=== PATIENT | male | born 1975 | race Caucasian/White ===

== ENCOUNTER 2021-05-05 23:05 | Inpatient (IN) ==
[2021-05-05] MEDS ORDERED: METOPROLOL TARTRATE 1 MG/ML VIAL IV ONE (23:32)
[2021-05-05] MEDS ORDERED: ASPIRIN CHEW 324 MG ONE (23:32)
[2021-05-05] MEDS ORDERED: ASPIRIN CHEW 324 MG PO STA (23:32)
[2021-05-05] MEDS ORDERED: METOPROLOL TARTRATE 1 MG/ML VIAL IV STA (23:33)
[2021-05-05 23:42] LABS: Basophils # (auto) 0.03 K/uL (0-0.2); Basophils % (auto) 0.4 %; Eosinophils # (auto) 0.09 K/uL (0-0.5); Eosinophils % (auto) 1.1 %; Hematocrit (blood only) 47.1 % (42-52); Hemoglobin 17.2 g/dL (14.0-18.0); Immature Granulocytes # (auto) 0.05 K/uL (0.00-0.02); Immature Granulocytes % (auto) 0.6 %; Lymphocytes # (auto) 3.24 K/uL (1.2-3.4); Lymphocytes % (auto) 38.9 %; Mean Corpuscular Hemoglobin 33.1 pg (25-34); Mean Corpuscular Hgb Conc 36.5 g/dL (32-36); Mean Corpuscular Volume 90.8 fL (80-100); Mean Platelet Volume 10.1 fL (7.4-10.4); Monocytes # (auto) 0.69 K/uL (0.11-0.59); Monocytes % (auto) 8.3 %; Neutrophils # (auto) 4.23 K/uL (1.4-6.5); Neutrophils % (auto) 50.7 %; Platelet Count 191 K/uL (130-400); RDW Coefficient of Variation 11.8 % (11.5-14.5); RDW Standard Deviation 39.7 fL (36.4-46.3); Red Blood Count 5.19 M/uL (4.7-6.1); White Blood Count 8.33 K/uL (4.8-10.8)
[2021-05-05] MEDS ORDERED: MIDAZOLAM HCL 1 MG/ML 2ML VIAL ONE (23:43)
[2021-05-05] MEDS ORDERED: fentaNYL citrate 100 MCG/2 ML VIAL ONE (23:43)
[2021-05-05] MEDS ORDERED: HEPARIN (PORCINE) 1000 UNIT/ML 10 ML (CATH LAB USE ONLY) ONE (23:43)
[2021-05-05] MEDS ORDERED: niCARdipine HCL INJ 2.5 MG/ML 10 ML AMP ONE (23:43)
[2021-05-05] MEDS ORDERED: BIVALIRUDIN 250 MG VIAL (CATH LAB ONLY) ONE (23:44)
[2021-05-05] MEDS ORDERED: NITROGLYCERIN/D5W 100MCG/ML 20ML SYR ONE (23:44)
[2021-05-05 23:45] LABS: iSTAT Creatinine 1.2 mg/dl (0.6-1.3); iSTAT Hemoglobin 16.3 g/dl (14.0-18.0); iSTAT Ionized Calcium 1.02 mmol/l (1.12-1.32); iSTAT Potassium 3.8 mmol/L (3.3-5.0)
--- NOTE | 2021-05-05 23:47 | Emergency Department Note ---
Impression & Plan ST elevation AK (STEMI), Chest pain ED Provider Note NAME: FIOR ROJAS AGE: 45 SEX: M : 1975 ARRIVES VIA: Walk-In INFORMANT: Patient ED PROVIDER(S): Blair Salgado DO CHIEF COMPLAINT: Chest pain HPI: Patient is a 45-year-old male with past medical history of hyperlipidemia that presents the ER for chest pain. Pain is located over the middle of the c hest and started about an hour ago. Pain is described as a burning/heaviness. He has some left arm pain and shortness of breath with it. He was at its worse about 30 minutes ago. He denies any belly pain but admits to one episode of vomiting. No dysuria urgency or frequency. He denies any exertional symptoms but notes that he normally does not exert himself too much. Pain is currently a 2 out of 10. No other radiation. ROS: See above HPI for pertinent positives & negatives. A total of 10 systems reviewed and were otherwise negative. PAST MEDICAL HISTORY:See Below PAST SURGICAL HISTORY:See Below FAMILY HISTORY:See Below SOCIAL HISTORY:See Below HOME MEDICATIONS:See Below ALLERGIES:See Below VITALS:See Below PHYSICAL EXAMINATION: GENERAL: Sitting up in bed, alert, ill-appearing, mild distress EYE EXAM: normal conjunctiva. OROPHARYNX: no exudate, no erythema, lips, buccal mucosa, and tongue normal and mucous membranes are moist NECK: supple, no nuchal rigidity, no adenopathy, non-tender LUNGS: Clear to auscultation. Normal chest wall mechanics HEART: no murmurs, S1 normal and S2 normal ABDOMEN: abdomen soft, non-tender, normo-active bowel sounds, no masses, no rebound or guarding. UPPER EXTREMITIES: upper extremities are grossly normal. LOWER EXTREMITIES: No pitting edema. Calves are equal bilateral NEURO EXAM: Normal sensorium, cranial nerves II-XII grossly intact, normal speech, no gross weakness of arms, no gross weakness of legs. MEDICAL DECISION MAKING: Patient is a 45-year-old male with a past medical history of hyperlipidemia pr esents to the ER for midsternal chest pain which started about an hour ago. Has had its worse about half hour ago and has improved. Spelt 2 out of 10 now. He had some shortness of breath and left arm pain with it. EKG showed an inferior STEMI. Chest x-ray portable AP upright 1 view was unremarkable. He was given 2 doses of 2.5 Lopressor for an elevated heart rate and given aspirin. Discussed with Dr. PERAZA who evaluated the patient at bedside and he was taken emergently to the [facility]. After 2 doses of Lopressor his heart rate trended down to the 80s from the low 100-110. Blood pressure still remains slightly elevated in the 140s. Will hold on nitro with the inferior distribution of the AK. Triage Nursing notes reviewed. Limited review of prior medical records performed Vital Signs: reviewed and remarkable for no significant abnormalities Differential diagnosis: Differential diagnoses includes but is not limited to acute coronary syndrome, myocardial infarction, pericarditis, pulmonary embolus, aortic dissection, pneumonia, pneumothorax, musculoskeletal, shingles, esophageal. ER treatment provided: See below Diagnostics interpreted by me: ECG: EKG shows sinus rhythm rate of [address] segment elevations in the inferior leads With depression in V1 QTC 440 Cardiac Monitoring: An order was placed for continuous cardiac monitoring. The monitor shows a rate of 110 with sinus rhythm. Laboratory studies: As stated above and show below. Imaging studies: Portable AP upright 1 view of the chest per my read shows no focal infiltrate or pneumothorax Consultation(s): Discussed with interventional cardiology who presented to bedside Procedures: none Critical Care: I have personally spent 33 minutes of critical care time in the direct management of this patient. This includes bedside care, interpretation of diagnostic studies, and testing, discussion with consultants, patient, and family members, and other required patient management activities. This 33 minutes is in excess of all separately billable procedures. Past Med/Surg History Social History Smoking Status: Never smoker Feels Safe at Home: Yes Allergies Allergies Allergy/AdvReac Type Severity Reaction Status Date / Time No Known Allergies Allergy Verified 05/05/21 23:28 Home Meds Home Medications Medication Instructions Recorded Confirmed acetaminophen [Tylenol Extra 1,000 mg PO DIRECTED PRN 05/05/21 05/05/21 Strength] Results & Data (ED) Vital Signs Vital Signs - 24 hr 05/05/21 23:13 05/05/21 23:15 05/05/21 23:28 Temperature 36.7 C Temperature Source Temporal Artery Scan Pulse Rate 82 91 H Pulse Rate from SpO2 Sensor Respiratory Rate 14 23 Respiratory Effort / Characteristics Non-Labored Respiratory Depth Normal Blood Pressure 133/100 153/103 H Blood Pressure Mean 111 119 Pulse Oximetry 95 97 Oxygen Delivery Method Room Air Room Air Room Air Sepsis Recent Fever Within 48 Hours No Sepsis New/Unexplained Change in Mental Status No Sepsis Action Taken by Nursing No Action Required 05/05/21 23:40 05/05/21 23:44 05/05/21 23:45 Temperature Temperature Source Pulse Rate 106 H 86 83 Pulse Rate from SpO2 Sensor 108 H 87 Respiratory Rate 23 15 Respiratory Effort / Characteristics Respiratory Depth Blood Pressure 159/132 H 150/104 H 150/104 H Blood Pressure Mean 141 119 Pulse Oximetry 96 97 Oxygen Delivery Method Room Air Room Air Sepsis Recent Fever Within 48 Hours Sepsis New/Unexplained Change in Mental Status Sepsis Action Taken by Nursing 05/05/21 23:49 05/05/21 23:50 Temperature Temperature Source Pulse Rate 83 81 Pulse Rate from SpO2 Sensor 84 82 Respiratory Rate 17 22 Respiratory Effort / Characteristics Respiratory Depth Blood Pressure 138/104 H 143/102 H Blood Pressure Mean 115 115 Pulse Oximetry 94 94 Oxygen Delivery Method Room Air Room Air Sepsis Recent Fever Within 48 Hours Sepsis New/Unexplained Change in Mental Status Sepsis Action Taken by Nursing Laboratory Data Result diagrams: 05/05/21 23:34 05/05/21 23:34 Lab Results 05/05/21 05/05/21 05/05/21 Range/Units 23:34 23:34 23:34 WBC 8.33 (4.8-10.8) K/uL RBC 5.19 (4.7-6.1) M/uL Hgb 17.2 (14.0-18.0) g/dL POC Hgb 16.3 (14.0-18.0) g/dl Hct 47.1 (42-52) % POC Hct 48 (42-52) % MCV 90.8 (80-100) fL MCH 33.1 (25-34) pg MCHC 36.5 H (32-36) g/dL RDW Std Deviation 39.7 (36.4-46.3) fL RDW Coeff of Elzbieta 11.8 (11.5-14.5) % Plt Count 191 (130-400) K/uL MPV 10.1 (7.4-10.4) fL Immature Gran % (Auto) 0.6 % Neut % (Auto) 50.7 % Lymph % (Auto) 38.9 % O'Brien % (Auto) 8.3 % Eos % (Auto) 1.1 % Baso % (Auto) 0.4 % Neut # (Auto) 4.23 (1.4-6.5) K/uL Lymph # (Auto) 3.24 (1.2-3.4) K/uL O'Brien # (Auto) 0.69 H (0.11-0.59) K/uL Eos # (Auto) 0.09 (0-0.5) K/uL Baso # (Auto) 0.03 (0-0.2) K/uL Immature Gran # (Auto) 0.05 H (0.00-0.02) K/uL APTT 36.0 H (21.0-31.0) Seconds PTT Ratio 1.4 POC Sodium 138 (135-144) mmol/L POC Potassium 3.8 (3.3-5.0) mmol/L POC Chloride 99 L (101-112) mmol/L POC Total CO2 27 (24-31) mmol/L POC Anion Gap 17.0 (16-25) mmol/L POC BUN 13 (7-18) mg/dl POC Creatinine 1.2 (0.6-1.3) mg/dl POC Glucose (other) 125 H (70-99) mg/dl POC Ioniz Calcium Db 1.02 L (1.12-1.32) mmol/l COVID-19 Eval Order 05/05/21 Range/Units 23:47 WBC (4.8-10.8) K/uL RBC (4.7-6.1) M/uL Hgb (14.0-18.0) g/dL POC Hgb (14.0-18.0) g/dl Hct (42-52) % POC Hct (42-52) % MCV (80-100) fL MCH (25-34) pg MCHC (32-36) g/dL RDW Std Deviation (36.4-46.3) fL RDW Coeff of Elzbieta (11.5-14.5) % Plt Count (130-400) K/uL MPV (7.4-10.4) fL Immature Gran % (Auto) % Neut % (Auto) % Lymph % (Auto) % O'Brien % (Auto) % Eos % (Auto) % Baso % (Auto) % Neut # (Auto) (1.4-6.5) K/uL Lymph # (Auto) (1.2-3.4) K/uL O'Brien # (Auto) (0.11-0.59) K/uL Eos # (Auto) (0-0.5) K/uL Baso # (Auto) (0-0.2) K/uL Immature Gran # (Auto) (0.00-0.02) K/uL APTT (21.0-31.0) Seconds PTT Ratio POC Sodium (135-144) mmol/L POC Potassium (3.3-5.0) mmol/L POC Chloride (101-112) mmol/L POC Total CO2 (24-31) mmol/L POC Anion Gap (16-25) mmol/L POC BUN (7-18) mg/dl POC Creatinine (0.6-1.3) mg/dl POC Glucose (other) (70-99) mg/dl POC Ioniz Calcium Db (1.12-1.32) mmol/l COVID-19 Eval Order Covid19 at [facility] Administered Medications Discontinued Medications Aspirin (Aspirin Chew 324 Mg) Confirm Administered Dose 324 mg .ROUTE .STMessageMe-MED ONE Stop: 05/05/21 23:33 Last Admin: 05/05/21 23:45 Dose: 324 mg Documented by: [id number] Aspirin (Aspirin Chew 324 Mg) 324 mg PO NOW STA Stop: 05/05/21 23:33 Last Admin: 05/05/21 23:46 Dose: Not Given Documented by: [id number] Metoprolol Tartrate (Metoprolol Tartrate 1 Mg/Ml Vial) Confirm Administered Dose 5 mg IV .STK-MED ONE Stop: 05/05/21 23:33 Last Admin: 05/05/21 23:45 Dose: 5 mg Documented by: [id number] Metoprolol Tartrate (Metoprolol Tartrate 1 Mg/Ml Vial) 2.5 mg IV NOW STA Stop: 05/05/21 23:34 Last Admin: 05/05/21 23:47 Dose: Not Given Documented by: [id number] Discharge Plan Visit Data Chief Complaint: Chest Pain Stated Complaint: BURNING IN CHEST ED Provider: Blair Salgado Discharge Problem: ST elevation AK (STEMI), Chest pain Forms Stand Alone Forms: [facility] [place] [employer] Prescriptions Prescriptions: No Action acetaminophen [Tylenol Extra Strength] 500 mg Tablet 1,000 mg PO DIRECTED PRN (Reason: Pain) RF: 0 Referrals Referrals: Chon Donovan MD [Primary Care Provider] - Discharge Problem: ST elevation AK (STEMI) Qualifiers: Involved coronary artery: unspecified coronary artery Qualified Code(s): I21.3 - ST elevation (STEMI) myocardial infarction of unspecified site Chest pain Qualifiers: Chest pain type: unspecified Qualified Code(s): R07.9 - Chest pain, unspecified
[2021-05-05 23:51] LABS: Partial Thromboplastin Ratio 1.4
[2021-05-05] MEDS ORDERED: TICAGRELOR 90 MG TAB PO ONE (23:54)
[2021-05-05] MEDS ORDERED: HEPARIN 100 UNIT/ML 5ML FLUSH ONE (23:55)
[2021-05-05] MEDS ORDERED: HEPARIN SOD (PORCINE) 1000 UNIT/ML ONE (23:56)
[2021-05-06 00:05] LABS: Albumin Level 3.9 gm/dl (3.4-5.0); BUN Creatinine Ratio 12.3 (10-20); Creatinine Clr Calc Pharmacy 87.5 ml/min; Est GFR (African American) 88.3 ml/min; Est GFR (Non-African American) 76.2 ml/min; Potassium 3.5 mmol/L (3.5-5.1)
[2021-05-06 00:10] LABS: Albumin Globulin Ratio 1.1 (0.9-2); Bilirubin,Total 0.4 mg/dl (0.2-1); Globulin 3.4 gm/dl (2.5-4.0); Total Protein 7.3 gm/dl (6.4-8.2); Troponin I 0.03 ng/ml (0-0.045)
--- NOTE | 2021-05-06 00:15 | Pre Anesthesia Assessment ---
Date of Service May 06, 2021 Pre Sedation Assessment Vital Signs Temp Pulse Resp BP Pulse Ox 05/05/21 23:50 81 22 143/102 H 94 05/05/21 23:49 83 17 138/104 H 94 05/05/21 23:45 83 150/104 H 05/05/21 23:44 86 15 150/104 H 97 05/05/21 23:40 106 H 23 159/132 H 96 05/05/21 23:28 91 H 23 153/103 H 97 05/05/21 23:13 36.7 C 82 14 133/100 95 Cardiovascular RRR, no murmur, no edema Respiratory normal respiratory effort, lungs clear to auscultation Pre-Sedation Airway Assessment Smoking Status: Never smoker Mallampati Class: II ASA: ASA3 Notes The planned sedation has been discussed with the patient. Informed Consent was obtained. I have identified the patient, determined the appropriateness of sedation and have assessed the patient immediately prior to the procedure. All medicine(s) and interventions are by my order.
[2021-05-06] MEDS ORDERED: MIDAZOLAM HCL 1 MG/ML 2ML VIAL ONE (00:29)
--- NOTE | 2021-05-06 00:47 | Post Anesthesia Assessment ---
Date of Service May 06, 2021 Post Sedation Assessment Vital Signs Temp Pulse Resp BP Pulse Ox 05/05/21 23:50 81 22 143/102 H 94 05/05/21 23:49 83 17 138/104 H 94 05/05/21 23:45 83 150/104 H 05/05/21 23:44 86 15 150/104 H 97 05/05/21 23:40 106 H 23 159/132 H 96 05/05/21 23:28 91 H 23 153/103 H 97 05/05/21 23:13 36.7 C 82 14 133/100 95 Recovery Score Activity: Moves 4 extremities Respiration: Deep Breath/Cough Circulation: +/-20% PreAnes Value Consciousness: Fully Awake Oxygen Saturation: O2 needed for >90% Discharge Sedation Level of Care: Phase I Post Sedation Plan On clinical assessment, the patient appears to have tolerated the sedation without complications. Patient is recovering as anticipated. Patient will continue to be monitored by nursing and may be discharged when sedation discharge criteria are met per below protocol. Upon Completions of procedure up to 15 minutes continue every 5 minute vital signs and the P.A.R. score; then discharge to a Phase I or Fast Track to Phase II per the following guidelines: * Discharge Patient to appropriate Phase II area if PAR is 8 or greater or return to pre- procedure baseline. The post - procedure orders will be as directed. * If PAR score is less than 8 or not return to pre-procedure baseline then patient will follow Phase I monitoring till PAR is reached for Phase II. The Phase I may be done in procedure room or may call to secure a Phase I area. * If naloxone or flumazenil are used for reversal, hold in Phase I for continued monitoring from when last reversal dose was given for a minimum of 60 minutes or longer pending the nurse and/or physician discretion of patient condition before discharge to Phase II. Please call the Sedation Physician to re-evaluate and complete post-note for discharge to Phase II area. Do NOT discharge from procedure sedation or Phase 1 until post- sedation evaluation note is complete by procedure /sedation MD Sedation Discharge Instructions to be given to the patient at discharge to home.
--- NOTE | 2021-05-06 00:52 | Cardiac Catheterization ---
ACC Data: [employer] Cardiac Status Clinical evaluation leading to the procedure CAD Presenation: STEMI Cardiogenic Shock within 24 Hours: No Cardiac Arrest within 24 Hours: No Coronary Anatomy Left Main (% Stenosis): Normal LAD (% Stenosis): Mid (80) Circumflex (% Stenosis): Proximal (30) OM1 (% Stenosis): Proximal (70) OM2 (% Stenosis): Proximal (100) RCA (% Stenosis): Mid (70) Diagnostic Physicians Name: Casimiro Coronado MD Closure Device Recommendations: Medical Therapy and/or Counseling and PCI without planned CABG Cardiac Cath Procedure Full Procedure Date May 06, 2021 Pre-Procedure Diagnosis Pre-Procedure Diagnosis: STEMI AUC Score AUC Score: 9 Post-Procedure Diagnosis Post-Procedure Diagnosis: Severe CAD Procedure(s) Performed Procedure(s) Performed: Coronary Angiography and Drug Eluting Stent Director Channel Casimiro Coronado MD Estimated Blood Loss Estimated Blood Loss: None Summary of Findings 45-year-old gentleman, prior history of hyperlipidemia who presented to emergency room with sudden onset of substernal chest discomfort. EKG in the emergency room showed evidence of subtle ST segment elevations in inferior leads and minimal elevation in lateral leads. After extensive discussions, patient was taken over to cardiac catheterization lab. He had some hesitation earlier due to concerns about history of metal allergy in his mother however he does not himself has any significant known allergies. Emergency cardiac catheterization revealed presence of a 70% focal mid LAD lesion, also 60 to 70% OM1 lesion and 70% mid right coronary artery lesion. Culprit lesion was identified to be in second obtuse marginal artery with 100% occlusion and HAWK 0 flow. PCI was performed to second obtuse marginal artery with placement of 2.75 mm x 28 mm Xience drug-eluting stent, this was postdilated with 2.75 mm noncompliant balloon at nominal pressures. 0% residual with normal HAWK-3 flow, he did not have any immediate complications. He did have minimal slowing of his heart rhythm, sinus bradycardia which was promptly reversed with use of intravenous atropine. Hemodynamics Rest Ao:: 113/78 Final Ao: 95/70 LV: not done Recommendations Recommendations: Medical Therapy and/or Counseling and PCI without planned CABG Radiation Exposure (mGy) 1523 Contrast (mls) 110 I attest to the content of the Intraoperative Record and any orders documented therein. Any exceptions are noted below. PG Care Time/CCT Total # of Minutes Spent Total Time Spent with Patient: Total time spent is greater than 50% in coordination of care (as documented) at patient's floor/unit and/or counseling patient:
[2021-05-06] MEDS ORDERED: ICU PROTOCOL FOR HYPERGLYCEMIA PRN (03:07)
[2021-05-06 05:05] LABS: Basophils # (auto) 0.02 K/uL (0-0.2); Basophils % (auto) 0.2 %; Eosinophils # (auto) 0.01 K/uL (0-0.5); Eosinophils % (auto) 0.1 %; Hematocrit (blood only) 43.7 % (42-52); Hemoglobin 16.3 g/dL (14.0-18.0); Immature Granulocytes # (auto) 0.03 K/uL (0.00-0.02); Immature Granulocytes % (auto) 0.3 %; Lymphocytes % (auto) 16.2 %; Mean Corpuscular Hemoglobin 33.7 pg (25-34); Mean Corpuscular Hgb Conc 37.3 g/dL (32-36); Mean Corpuscular Volume 90.3 fL (80-100); Mean Platelet Volume 9.7 fL (7.4-10.4); Monocytes # (auto) 0.75 K/uL (0.11-0.59); Monocytes % (auto) 8.1 %; Neutrophils # (auto) 6.94 K/uL (1.4-6.5); Neutrophils % (auto) 75.1 %; Platelet Count 183 K/uL (130-400); RDW Coefficient of Variation 11.9 % (11.5-14.5); RDW Standard Deviation 39.3 fL (36.4-46.3); Red Blood Count 4.84 M/uL (4.7-6.1); White Blood Count 9.25 K/uL (4.8-10.8)
[2021-05-06 05:45] LABS: BUN Creatinine Ratio 11.5 (10-20); Calcium 8.6 mg/dl (8.5-10.1); Creatinine Clr Calc Pharmacy 103.9 ml/min; Est GFR (Non-African American) 94.9 ml/min; Magnesium 2.2 mg/dl (1.8-2.4); Potassium 3.8 mmol/L (3.5-5.1)
--- NOTE | 2021-05-06 05:57 | History and Physical Report ---
DATE OF ADMISSION: 05/06/2021 CHIEF COMPLAINT: Chest pain, ST elevated MD. HISTORY OF PRESENT ILLNESS: A 45-year-old male with past medical history significant for hyperlipidemia, obesity, currently not taking any medications, presents with chest pain. The patient around 10 p.m. was going to bed. He noticed chest discomfort of 2/10 severity but more of feeling tight in the chest when he was laying down, could not breathe and the pain started radiating to the left arm about 3/10 severity. At that time he decided to come to the ER. On the way he vomited. In the ER, he was found to have EKG showed ST elevation in inferolateral leads and heart rate was called. The patient was taken emergently to Cardiac Cath, cardiac cath done. Cardiac catheterization showed 70% focal mid LAD lesion, 60-70% OM1 lesion and 70% mid right coronary artery lesion. The culprit lesion was identified to be the second obtuse marginal artery with 100% occlusion. The patient is status post drug eluting stent to the second obtuse marginal artery. Currently patient is asymptomatic, resting comfortably in the ICU. Hemodynamically stable. The patient did not have any sweating , nausea, headache or dizziness during the episode. No cough, no fever, no chills, no earache, no runny nose, no sore throat. Denies any abdominal pain. Normal bowel and bladder movements. Otherwise before this episode he was ambulating fine without any symptoms. The patient also has history of very high cholesterol and family doctor prescribed him Lipitor but he never took it. ALLERGIES: No known drug allergies. PAST MEDICAL HISTORY: As mentioned above. PAST SURGICAL HISTORY: None. MEDICATIONS: None. FAMILY HISTORY: Mother has asthma, aortic valve replacement, severe peripheral vascular disease, hypertension, depression, allergies to metal. Father has hypertension. Sister has asthma, heart disorder. SOCIAL HISTORY: . No smoking, Alcohol rarely. No drug use. REVIEW OF SYMPTOMS: As per HPI. Rest of review of symptoms negative. PHYSICAL EXAMINATION: GENERAL: The patient is obese, not in acute distress. VITAL SIGNS: Temperature 36.6, pulse 97, respiratory rate 20, blood pressure 120/85, oxygen 95% on room air. HEENT: Head atraumatic. NECK: No JVD. No neck masses seen. CARDIOVASCULAR: S1, S2 heard. Regular rate and rhythm. No murmur, no gallop. RESPIRATORY: Normal AP diameter. No accessory muscle use. No wheeze, no crackles. ABDOMEN: Soft. Bowel sounds heard. Nontender, no distention. CENTRAL NERVOUS SYSTEM: Cranial nerves II-XII grossly intact. Nonfocal. EXTREMITIES: Right groin catheter site has no pitting or erythema seen. LABORATORY DATA: WBC 8.3, hemoglobin 17.2, hematocrit 47.1, platelets 191. APTT 36. Sodium 137, potassium 3.8, chloride 101, bicarb 26, BUN 14, creatinine 1.1, serum glucose 127, calcium 9, total bilirubin 0.4. AST 28, ALT 58, alkaline phosphatase 86. Troponin I 0.03. Lipase 176. SARS-CoV-2 PCR negative. chest x-ray. No acute findings. EKG: Normal sinus rhythm, sinus arrhythmia, rate of 72. ST elevation in the inferolateral leads. ASSESSMENT AND PLAN: This is a 45-year-old male presents with chest pain and ST elevated MD. 1. ST elevated MD, inferolateral leads status post emergent cardiac cath. Cardiac cath showed culprit lesion in the second obtuse marginal branch, 100% occlusion status post drug eluting stent. The patient also had lesions 70% focal mid LAD lesion, 60-70% OM1 lesion and 70% mid right coronary artery lesion. Currently the patient on aspirin, Brilinta, Lipitor and metoprolol. We will follow the serial enzymes and further management as per cardiology. Follow echo. Monitor in the ICU for now. 2. Hyperlipidemia. The patient has history of hyperlipidemia on outpatient labs in 05/2020. His LDL was 245, total cholesterol was 330 and HDL was 40. Family doctor started on Lipitor but he never took it. We will follow the lipid profile. Started him on Lipitor. needs followup. 3. DVT prophylaxis. SCDs. DISPOSITION: Monitor in ICU for now. Expect discharge home. Follow with cardiology and PCP. KENJI
--- NOTE | 2021-05-06 07:11 | XRay Report ---
XR chest 1V portable CLINICAL HISTORY: Chest Pain COMPARISON STUDY: No previous studies for comparison. FINDINGS: Lung volumes are normal. Lungs are clear. There is no pneumothorax or pleural effusion. Car diac size is normal. Mediastinal contours are normal. There is no evidence for pulmonary edema. IMPRESSION: No acute cardiopulmonary findings. ACT 112: Negative or not required by law. Electronically signed by: Maynor Bocanegra M.D. 05/06/2021 7:09 AM
[2021-05-06] MEDS: ASPIRIN 81 MG ECTAB PO SCH (08:07)
[2021-05-06] MEDS ORDERED: METOPROLOL TARTRATE 25 MG TAB PO SCH (09:00)
[2021-05-06] MEDS ORDERED: ATORVASTATIN 40 MG TAB PO SCH (09:00)
[2021-05-06] MEDS ORDERED: ATORVASTATIN 40 MG TAB PO ONE (09:30)
--- NOTE | 2021-05-06 09:38 | Cardiology Consultation ---
Date of Consultation May 06, 2021 Assessment & Plan (1) ST elevation [place] (STEMI): s/p emergent cardiac catheterization, PCI, IVANA to culprit thrombotic OM2 occlusion. Has residual LAD, RCA disease. Echo revealed normal wall motion, LVEF. Continue, ASA, Brilinta, Metoprolol (tirtrate dose), atorvastatin. Perhaps add ACEI, during admission, after cath course completed. Troponin I 124 ng/ ml . No angina at present. Inferolateral ST elevtion noted on presentation, repeat EKG this am. Stable for transfer to PCU. NPO after midnight for staged PCI of LAD on 05/07/21. (2) Dyslipidemia: Update lipid panel. Increase atorvastatin to 80 mg daily. Pt counseled on importance of statin therapy. (3) Family history of peripheral vascular disease: Pt with h/o PAD, carotid disease in mother whom I follow as an outpatient. Consider screening as outpatient. History of Present Illness Attending Physician: Mark Cruz MD History of Present Illness Mr Hodge Is a 45-year-old male with a past medical history of dyslipidemia. He had previously been on a statin agent, but he discontinued it due to concerns of risk of side effects. He however does not describe having had any specific intolerance. I actually follow his mother as an outpatient there was a history of multibed vascular disease including coronary heart disease, carotid disease, and peripheral vascular disease for which he underwent previous surgical revascularization. The patient was in his normal state of health until last evening when he went to bed at which time he had difficulty falling asleep due to onset of chest discomfort, difficulty breathing, and ultimately left arm pain and dyspepsia. He ultimately presented to the emergency department was found to have subtle inferior lateral ST segment prompting emergent cardiac catheterization elevation. Initial vital signs were obtained at 23:13, Balloon inflation to place a 12:32 AM. He underwent PCI of the culprit OM 2 stenosis with excellent angiographic result and subsequent resolution of his symptoms. Telemetry reveals sinus rhythm in the 90s. Past Medical History: dyslipidemia Surgical History: Cardiac catheterization as noted above this admission Family History: History of vascular disease in mother and other relatives. 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 Beliefs That Will Affect Care: None Current Living Situation: Spouse Other Information That Helps Us Care for You: No Feels Safe at Home: Yes Safety Concerns: Feels Safe At This Time Assistive Devices: None Review of Systems Review of Systems: All systems reviewed & are unremarkable except as noted in HPI & below Physical Exam Physical Exam: Temp Pulse Resp BP Pulse Ox 36.9 C 102 H 19 124/82 94 05/06/21 08:00 05/06/21 08:27 05/06/21 08:27 05/06/21 08:27 05/06/21 08:27 Constitutional: WD/WN, vitals as above Respiratory: normal respiratory effort, lungs clear to auscultation Cardiovascular: RRR, no murmur, no edema Gastrointestinal (Abdomen): normal bowel sounds, soft, nontender, no hepatosplenomegaly Neurologic: PERRL, EOMI, accommodation nl, no face palsy, no dysarthria Results & Data ([facility]) Vital Signs (Past 12 Hours) Vital Signs Temp Pulse Pulse Resp BP BP Pulse Ox 05/06/21 08:27 102 H 19 124/82 94 05/06/21 08:07 96 H 18 126/87 97 05/06/21 08:00 36.9 C 05/06/21 07:27 86 13 100/73 93 05/06/21 06:00 63 13 89 L 05/06/21 05:57 63 17 103/67 92 05/06/21 05:27 83 24 104/70 95 05/06/21 05:00 70 12 93 05/06/21 04:57 74 13 104/77 96 05/06/21 04:27 83 16 120/87 93 05/06/21 04:00 89 19 93 05/06/21 03:58 71 21 113/82 95 05/06/21 03:27 79 14 114/82 94 05/06/21 03:00 84 15 92 05/06/21 02:58 83 13 117/87 94 05/06/21 02:27 89 13 124/81 95 05/06/21 02:12 91 H 16 127/88 93 05/06/21 02:00 97 H 20 95 05/06/21 01:57 94 H 20 120/85 94 05/06/21 01:45 92 H 19 95 05/06/21 01:32 36.6 C 99 H 16 113/70 94 05/06/21 01:30 97 H 20 95 05/06/21 01:15 99 H 20 05/06/21 01:09 99 H 22 113/70 94 05/06/21 01:07 101 H 5 L 05/05/21 23:50 81 22 143/102 H 94 05/05/21 23:49 83 17 138/104 H 94 05/05/21 23:45 83 150/104 H 05/05/21 23:44 86 15 150/104 H 97 05/05/21 23:40 106 H 23 159/132 H 96 05/05/21 23:28 91 H 23 153/103 H 97 05/05/21 23:13 36.7 C 82 14 133/100 95 (1) ST elevation [place] (STEMI) Involved coronary artery: unspecified coronary artery Qualified Code(s): I21.3 - ST elevation (STEMI) myocardial infarction of unspecified site
[2021-05-06] MEDS ORDERED: METOPROLOL TARTRATE 25 MG TAB PO ONE (09:44)
[2021-05-06 10:48] LABS: Chol HDL Ratio 7; Cholesterol 279 mg/dl (0-200); HDL Cholesterol 42 mg/dl; LDL Cholesterol Calculated 198 mg/dl; Triglycerides 195 mg/dl (0-150); VLDL Cholesterol 39 mg/dl
--- NOTE | 2021-05-06 11:14 | Communication Note ---
Date of Service: May 06, 2021 Repeat EKG performed this morning sub- at 10:09 AM reveals resolution of the previously noted ST segment elevation, new Q waves however are noted in the inferior leads II, III, and aVF. Continue present treatment. Per patient's request, I called and updated his significant other, Mare, by phone.
[2021-05-06] MEDS: TICAGRELOR 90 MG TAB PO SCH ×2 (11:48→21:15)
--- NOTE | 2021-05-06 12:39 | Electrocardiogram Report ---
Test Reason : Blood Pressure : / mmHG Vent. Rate : 072 BPM Atrial Rate : 072 BPM P-R Int : 154 ms QRS Dur : 108 ms QT Int : 402 ms P-R-T Axes : 063 029 065 degrees QTc Int : 440 ms Normal sinus rhythm with sinus arrhythmia ST elevation consider inferolateral injury or acute infarct ACUTE [place] / STEMI Abnormal ECG No previous ECGs available Confirmed by Yayo Leung ([id number]) on 05/06/2021 12:39:28 PM Referred By: REFERRED SELF Confirmed By:Joaquin Leung
--- NOTE | 2021-05-06 12:40 | Electrocardiogram Report ---
Test Reason : Blood Pressure : / mmHG Vent. Rate : 101 BPM Atrial Rate : 101 BPM P-R Int : 150 ms QRS Dur : 098 ms QT Int : 374 ms P-R-T Axes : 053 -54 032 degrees QTc Int : 484 ms Sinus tachycardia Left anterior fascicular block Inferior infarct , age undetermined Abnormal ECG No previous ECGs available Confirmed by Yayo Leung ([id number]) on 05/06/2021 12:39:50 PM Referred By: REFERRED SELF Confirmed By:Joaquin Leung
--- NOTE | 2021-05-06 12:44 | Electrocardiogram Report ---
Test Reason : Blood Pressure : / mmHG Vent. Rate : 071 BPM Atrial Rate : 071 BPM P-R Int : 150 ms QRS Dur : 108 ms QT Int : 400 ms P-R-T Axes : 061 -53 038 degrees QTc Int : 434 ms Normal sinus rhythm Left axis deviation Inferior infarct (cited on or before 06-MAY-2021) Abnormal ECG When compared with ECG of 06-MAY-2021 01:17, (unconfirmed) No significant change was found Confirmed by Yayo Leung ([id number]) on 05/06/2021 12:44:26 PM Referred By: REFERRED SELF Confirmed By:Joaquin Leung
[2021-05-06] MEDS: METOPROLOL TARTRATE 25 MG TAB PO SCH (21:15)
[2021-05-06] MEDS: SODIUM CHLORIDE 0.9% 1000ML 1,000 ML IV SCH (21:19)
[2021-05-07] MEDS: ZOLPIDEM TARTRATE 5 MG TAB PO PRN ×2 (03:39→21:09)
[2021-05-07 06:26] LABS: Hematocrit (blood only) 44.5 % (42-52); Hemoglobin 15.9 g/dL (14.0-18.0); Mean Corpuscular Hemoglobin 32.1 pg (25-34); Mean Corpuscular Hgb Conc 35.7 g/dL (32-36); Mean Corpuscular Volume 89.7 fL (80-100); Mean Platelet Volume 10.1 fL (7.4-10.4); Platelet Count 151 K/uL (130-400); RDW Coefficient of Variation 12.1 % (11.5-14.5); RDW Standard Deviation 39.5 fL (36.4-46.3); Red Blood Count 4.96 M/uL (4.7-6.1)
[2021-05-07 06:58] LABS: Albumin Level 3.2 gm/dl (3.4-5.0); BUN Creatinine Ratio 11.9 (10-20); Calcium 8.4 mg/dl (8.5-10.1); Creatinine Clr Calc Pharmacy 105.3 ml/min; Est GFR (African American) 111.5 ml/min; Est GFR (Non-African American) 96.2 ml/min; Potassium 3.8 mmol/L (3.5-5.1)
[2021-05-07 07:00] LABS: Albumin Globulin Ratio 1.1 (0.9-2); Total Protein 6.2 gm/dl (6.4-8.2)
--- NOTE | 2021-05-07 07:10 | Hospitalist Progress Note ---
Date of Service May 07, 2021 Assessment & Plan (1) ST elevation [place] (STEMI): (2) Chest pain: (3) Family history of peripheral vascular disease: (4) Dyslipidemia: This is a 45-year-old male presents with chest pain and ST elevation [place]. 1. STEMI, inferolateral leads status post emergent cardiac cath. Cardiac cath showed culprit lesion in the second obtuse marginal branch, 100% occlusion status post drug eluting stent. The patient also had lesions 70% focal mid LAD lesion, 60-70% OM1 lesion and 70% mid right coronary artery lesion. Currently the patient on aspirin, Brilinta, Lipitor and metoprolol. We will follow the serial enzymes and further management as per cardiology. Follow echo. Monitor in PCU Returned to catheterization lab for staged PCI of non culprit mid LAD (1 IVANA) and mid RCA (2 overlapping Leif) today. Continue ASA, Brilinta, metoprolol. Change to metoprolol succinate 50 mg at discharge. Will reassess adding ACEI / ARB as outpatient, given relatively low BP (103/67), no h/o DM, CKD, or CHF (normal LVEF this admission). 2. Hyperlipidemia. The patient has history of hyperlipidemia on outpatient labs in 05/2020. His LDL was 245, total cholesterol was 330 and HDL was 40. Family doctor started on Lipitor but he never took it. Pt reports family members w/ adverse reaction after taking lipitor long-term, asking about starting Crestor instead. We will follow the lipid profile. Needs followup. 3. DVT prophylaxis. SCDs. DISPOSITION: PCU. Expect discharge home. Follow with cardiology and PCP. Admission and Anticipated Discharge Date Admission Date: May 06, 2021 Subjective Pt seen in follow up STEMI, chest pain, now s/p cardiac cath Sitting up in bed, feeling well Denies any chest pain, shortness of breath, palpitations, dizziness Pt's at the bedside and updated Review of Systems Review of Systems: All systems reviewed & are unremarkable except as noted in HPI & below Constitutional: no fever and no chills Respiratory: no cough and no dyspnea Cardiovascular: no chest pain and no palpitations Gastrointestinal: no abdominal pain, no nausea and no vomiting Physical Exam Physical Exam: GENERAL: WD, WN obese M, not in acute distress. HEENT: NC, Head atraumatic. NECK: No JVD. No neck masses seen. CARDIOVASCULAR: S1, S2 heard. Regular rate and rhythm. No murmur, no gallop. RESPIRATORY: Normal AP diameter. No accessory muscle use. No wheeze, no crackles. ABDOMEN: Soft. Bowel sounds heard. Nontender, no distention. NEURO: alett and oriented x3, speech fluent,no facial asymmetry, moves extremities EXTREMITIES: Radial band applied, +mild swelling Results & Data Results & Data ([facility]) Vital Signs (Past 12 Hours) Vital Signs Temp Pulse Pulse Pulse Resp BP Pulse Ox 05/07/21 03:21 36.8 C 81 17 111/73 94 05/06/21 23:10 36.6 C 74 18 108/75 94 05/06/21 22:25 71 Laboratory Results 05/07/21 05/07/21 05/06/21 Range/Units 06:08 06:08 17:11 WBC 8.30 (4.8-10.8) K/uL RBC 4.96 (4.7-6.1) M/uL Hgb 15.9 (14.0-18.0) g/dL Hct 44.5 (42-52) % MCV 89.7 (80-100) fL MCH 32.1 (25-34) pg MCHC 35.7 (32-36) g/dL RDW Std Deviation 39.5 (36.4-46.3) fL RDW Coeff of Elzbieta 12.1 (11.5-14.5) % Plt Count 151 (130-400) K/uL MPV 10.1 (7.4-10.4) fL Sodium 141 (136-145) mmol/L Potassium 3.8 (3.5-5.1) mmol/L Chloride 110 H (98-107) mmol/L Carbon Dioxide 23 (21-32) mmol/L Anion Gap 8.0 (3-11) BUN 11 (7-18) mg/dl Creatinine 0.94 (0.6-1.4) mg/dl Est Cr Clr Drug Dosing 105.3 ml/min Est GFR ( Amer) 111.5 ml/min Est GFR (Non-Af Amer) 96.2 ml/min BUN/Creatinine Ratio 11.9 (10-20) Glucose 101 H (70-99) mg/dl Calcium 8.4 L (8.5-10.1) mg/dl Total Bilirubin 1.0 D (0.2-1) mg/dl AST 135 H (15-37) U/L ALT 66 (12-78) U/L Alkaline Phosphatase 72 (45-117) U/L Troponin I 66.600 H* (0-0.045) ng/ml Total Protein 6.2 L (6.4-8.2) gm/dl Albumin 3.2 L (3.4-5.0) gm/dl Globulin 3.0 (2.5-4.0) gm/dl Albumin/Globulin Ratio 1.1 (0.9-2) Triglycerides (0-150) mg/dl Cholesterol (0-200) mg/dl LDL Cholesterol, Calc mg/dl VLDL Cholesterol, Calc mg/dl HDL Cholesterol mg/dl Cholesterol/HDL Ratio 05/06/21 05/06/21 Range/Units 10:57 09:55 WBC (4.8-10.8) K/uL RBC (4.7-6.1) M/uL Hgb (14.0-18.0) g/dL Hct (42-52) % MCV (80-100) fL MCH (25-34) pg MCHC (32-36) g/dL RDW Std Deviation (36.4-46.3) fL RDW Coeff of Elzbieta (11.5-14.5) % Plt Count (130-400) K/uL MPV (7.4-10.4) fL Sodium (136-145) mmol/L Potassium (3.5-5.1) mmol/L Chloride (98-107) mmol/L Carbon Dioxide (21-32) mmol/L Anion Gap (3-11) BUN (7-18) mg/dl Creatinine (0.6-1.4) mg/dl Est Cr Clr Drug Dosing ml/min Est GFR ( Amer) ml/min Est GFR (Non-Af Amer) ml/min BUN/Creatinine Ratio (10-20) Glucose (70-99) mg/dl Calcium (8.5-10.1) mg/dl Total Bilirubin (0.2-1) mg/dl AST (15-37) U/L ALT (12-78) U/L Alkaline Phosphatase (45-117) U/L Troponin I 105.000 H* (0-0.045) ng/ml Total Protein (6.4-8.2) gm/dl Albumin (3.4-5.0) gm/dl Globulin (2.5-4.0) gm/dl Albumin/Globulin Ratio (0.9-2) Triglycerides 195 H (0-150) mg/dl Cholesterol 279 H (0-200) mg/dl LDL Cholesterol, Calc 198 mg/dl VLDL Cholesterol, Calc 39 mg/dl HDL Cholesterol 42 mg/dl Cholesterol/HDL Ratio 7 Medications Administered Current Inpatient Medications Aspirin (Aspirin 81 Mg Ectab) 81 mg PO QAM [facility] Stop: 06/05/21 08:59 Last Admin: 05/06/21 08:07 Dose: 81 mg Documented by: Atorvastatin Calcium (Atorvastatin 40 Mg Tab) 80 mg PO QAM [facility] Stop: 06/06/21 08:59 Sodium Chloride (Nss 1000ml) 1,000 mls @ 75 mls/hr IV .[id number] [facility] Stop: 06/05/21 20:59 Last Admin: 05/06/21 21:19 Dose: 75 mls/hr Documented by: Metoprolol Tartrate (Metoprolol Tartrate 25 Mg Tab) 37.5 mg PO BID [facility] Stop: 06/05/21 20:59 Last Admin: 05/06/21 21:15 Dose: 37.5 mg Documented by: Miscellaneous (Icu Protocol For Hyperglycemia) 1 ea N/A PRN PRN; Protocol PRN Reason: Hyperglycemia Protocol Stop: 05/08/21 03:06 Ticagrelor (Ticagrelor 90 Mg Tab) 90 mg PO BID [facility] Stop: 06/05/21 10:59 Last Admin: 05/06/21 21:15 Dose: 90 mg Documented by: Zolpidem Tartrate (Zolpidem Tartrate 5 Mg Tab) 5 mg PO HS PRN PRN Reason: Sleep Stop: 06/06/21 03:14 Last Admin: 05/07/21 03:39 Dose: 5 mg Documented by: (1) ST elevation [place] (STEMI) Involved coronary artery: unspecified coronary artery Qualified Code(s): I21.3 - ST elevation (STEMI) myocardial infarction of unspecified site (2) Chest pain Chest pain type: unspecified Qualified Code(s): R07.9 - Chest pain, unspecified
[2021-05-07] MEDS: ASPIRIN 81 MG ECTAB PO SCH (08:13)
[2021-05-07] MEDS: TICAGRELOR 90 MG TAB PO SCH ×2 (08:13→21:07)
[2021-05-07] MEDS: METOPROLOL TARTRATE 25 MG TAB PO SCH ×2 (08:13→21:07)
[2021-05-07] MEDS ORDERED: ATORVASTATIN 40 MG TAB PO SCH (09:00)
--- NOTE | 2021-05-07 09:18 | Pre Anesthesia Assessment ---
Date of Service May 07, 2021 Pre Sedation Assessment Vital Signs Temp Pulse Pulse Pulse Resp BP BP 05/07/21 07:52 98.4 F 84 16 92/57 L 05/07/21 03:21 98.2 F 81 17 111/73 05/06/21 23:10 97.9 F 74 18 108/75 05/06/21 22:25 71 05/06/21 18:54 99.3 F 86 16 126/81 05/06/21 16:00 75 05/06/21 13:27 75 19 116/75 05/06/21 12:27 66 23 109/74 05/06/21 11:57 77 15 115/87 05/06/21 11:27 83 18 112/78 05/06/21 10:57 69 18 113/82 05/06/21 10:27 65 12 111/77 05/06/21 09:57 65 18 118/78 05/06/21 09:27 81 18 117/85 Pulse Ox 05/07/21 07:52 93 05/07/21 03:21 94 05/06/21 23:10 94 05/06/21 22:25 05/06/21 18:54 94 05/06/21 16:00 05/06/21 13:27 93 05/06/21 12:27 96 05/06/21 11:57 96 05/06/21 11:27 95 05/06/21 10:57 94 05/06/21 10:27 93 05/06/21 09:57 96 05/06/21 09:27 92 Cardiovascular RRR, no murmur, no edema Respiratory normal respiratory effort, lungs clear to auscultation Pre-Sedation Airway Assessment Smoking Status: Never smoker Hx Sleep Apnea: No Hx Difficult Intubation: No Short, Thick Neck: No Thyromental Distance: > or= 3.5 Finger Breadths Oral Cavity: + WNL Mallampati Class: II ASA: ASA3 Procedure Planning Contraindications for Sedation: none Current Medications Reviewed: Yes Notes The planned sedation has been discussed with the patient. Informed Consent was obtained. I have identified the patient, determined the appropriateness of sedation and have assessed the patient immediately prior to the procedure. All medicine(s) and interventions are by my order.
[2021-05-07] MEDS: SODIUM CHLORIDE 0.9% 1000ML 1,000 ML IV SCH (11:22)
[2021-05-07] MEDS ORDERED: niCARdipine HCL INJ 2.5 MG/ML 10 ML AMP ONE (11:55)
[2021-05-07] MEDS ORDERED: fentaNYL citrate 100 MCG/2 ML VIAL ONE (11:55)
[2021-05-07] MEDS ORDERED: HEPARIN (PORCINE) 1000 UNIT/ML 10 ML (CATH LAB USE ONLY) ONE ×2 (11:55→12:37)
[2021-05-07] MEDS ORDERED: MIDAZOLAM HCL 1 MG/ML 2ML VIAL ONE (11:55)
[2021-05-07] MEDS ORDERED: NITROGLYCERIN/D5W 100MCG/ML 20ML SYR ONE (11:56)
--- NOTE | 2021-05-07 12:11 | Electrocardiogram Report ---
Test Reason : Blood Pressure : / mmHG Vent. Rate : 071 BPM Atrial Rate : 071 BPM P-R Int : 146 ms QRS Dur : 100 ms QT Int : 402 ms P-R-T Axes : 070 004 054 degrees QTc Int : 436 ms Normal sinus rhythm Normal ECG When compared with ECG of 06-MAY-2021 10:09, Criteria for Inferior infarct are no longer Present Confirmed by Yayo Leung ([id number]) on 05/07/2021 12:11:00 PM Referred By: REFERRED SELF Confirmed By:Joaquin Leung
[2021-05-07] MEDS ORDERED: NOREPINEPHRINE BITARTRATE 1 MG/ML 4 ML VIAL (CATH LAB USE ONLY) ONE (12:16)
[2021-05-07] MEDS ORDERED: DOPamine 400MG / 250ML D5W (Cath Lab Use ONLY) ONE (12:18)
--- NOTE | 2021-05-07 13:46 | Post Anesthesia Assessment ---
Date of Service May 07, 2021 Post Sedation Assessment Vital Signs Temp Pulse Pulse Pulse Resp BP Pulse Ox 05/07/21 13:41 72 16 108/81 98 05/07/21 13:26 76 16 114/80 98 05/07/21 08:00 68 05/07/21 07:52 98.4 F 84 16 92/57 L 93 05/07/21 03:21 98.2 F 81 17 111/73 94 05/06/21 23:10 97.9 F 74 18 108/75 94 05/06/21 22:25 71 05/06/21 18:54 99.3 F 86 16 126/81 94 05/06/21 16:00 75 Recovery Score Activity: Moves 4 extremities Respiration: Deep Breath/Cough Circulation: +/-20% PreAnes Value Consciousness: Fully Awake Oxygen Saturation: > 92% On Room Air Post Anesthesia Score: 10 Discharge Sedation Level of Care: Fast Track Phase II Post Sedation Plan On clinical assessment, the patient appears to have tolerated the sedation without complications. Patient is recovering as anticipated. Patient will continue to be monitored by nursing and may be discharged when sedation discharge criteria are met per below protocol. Upon Completions of procedure up to 15 minutes continue every 5 minute vital signs and the P.A.R. score; then discharge to a Phase I or Fast Track to Phase II per the following guidelines: * Discharge Patient to appropriate Phase II area if PAR is 8 or greater or return to pre- procedure baseline. The post - procedure orders will be as directed. * If PAR score is less than 8 or not return to pre-procedure baseline then patient will follow Phase I monitoring till PAR is reached for Phase II. The Phase I may be done in procedure room or may call to secure a Phase I area. * If naloxone or flumazenil are used for reversal, hold in Phase I for continued monitoring from when last reversal dose was given for a minimum of 60 minutes or longer pending the nurse and/or physician discretion of patient condition before discharge to Phase II. Please call the Sedation Physician to re-evaluate and complete post-note for discharge to Phase II area. Do NOT discharge from procedure sedation or Phase 1 until post- sedation evaluation note is complete by procedure /sedation MD Sedation Discharge Instructions to be given to the patient at discharge to home.
--- NOTE | 2021-05-07 14:00 | Cardiac Catheterization ---
ACC Data: It Support Consultant Cardiac Status Clinical evaluation leading to the procedure CAD Presenation: STEMI Anginal Classification: CCS IV Heart Failure: No Cardiogenic Shock within 24 Hours: No Cardiac Arrest within 24 Hours: No Imaging Studies Past 6 Months: Yes Stress Studies Past 6 Months: No Diagnostic Physicians Name: Yayo Angelo MD Status: Elective Closure Device Percutaneous Entry Location: Radial Closure Device: Radial Band Recommendations: Medical Therapy and/or Counseling and PCI without planned CABG PCI Indication: Staged PCI Lesion Segment Name: proximal to mid LAD Culprit Artery: Yes Stenosis Prior to Rx (%): 90 Chronic Total Occlusion: No IVUS: Yes FFR: No Pre-Procedure HAWK Flow: 3 Previously Treated Lesion: No Lesion Complexity: High/C Lesion Length (mm): 30 Thrombus Present: No Bifurcation Lesion: Yes Guidewire Across Lesion: Stenosis Post-Procedure (%): 0 Post-Procedure HAWK Flow: 3 Devices(s) Deployed: Yes Yes Lesion #2 Segment Name: Mid RCA Culprit Artery: Yes Stenosis Prior to Rx (%): 70 Chronic Total Occlusion: No IVUS: No FFR: No Previously Treated Lesion: No Lesion Complexity: Non-High/Non-C Lesion Length (mm): 18 Thrombus Present: No Bifurcation Lesion: No Guidewire Across Lesion: Yes Stenosis Post-Procedure (%): 0 Post-Procedure HAWK Flow: 3 Devices(s) Deployed: Yes Intraprocedure Events Significant Disection: No Perforation: No Cardiac Cath Procedure Full Procedure Date May 07, 2021 Pre-Procedure Diagnosis Pre-Procedure Diagnosis: CAD AUC Score AUC Score: 7 Post-Procedure Diagnosis Post-Procedure Diagnosis: Successful PCI and Elevated Intracardiac Pressures Procedure(s) Performed Procedure(s) Performed: Coronary Angiography, Left Heart Cath and Drug Eluting Stent Apartment Rental Clerk Yayo Angelo MD Estimated Blood Loss Estimated Blood Loss: None Medication(s) Medication(s): Fentanyl, Heparin, Lidocaine 1%, Nicardipine and Nitroglycerin Summary of Findings Indication: Staged PCI of LAD, RCA after primary PCI to distal circumflex for inferolateral STEMI 05/05/2021 Access: 6 Fr right radial artery Catheters: EBU 3.5 guide, diagnostic JR4, JR4 guide Findings: LM -normal caliber, no significant disease LAD -severe diffuse proximal to mid disease up to 90% Circumflex -distal circumflex stent widely patent RCA -dominant, 40 to 50% proximal stenosis, 70% latemid RCA stenosis LVEDP -21 -- PCI -- Antithrombotic therapy: Heparin, ticagrelor Procedure: Left main cannulated with EBU 3.5 guide Hemotherapist 50 wire passed across lesion into distal LAD Prowater wire placed into second diagonal [place] IVUS catheter placed into latemid LAD. Pullback revealed severe diffuse disease extending back to ostium, mildly calcified. No significant left main disease Proximal to mid LAD lesion predilated with 2.5 compliant balloon Dilated lesion stented with 3.0 x 33 mm Xience drug-eluting stent Stent post-dilated with 3.5 noncompliant balloon IC vasodilators administered for spasm Repeat [place] IVUS revealed well-expanded stent, well apposed with no apparent edge complications. Post procedure HAWK 3 flow, stent well expanded with minimal residual stenosis, HAWK-3 flow in branch vessels and no apparent edge complications. RCA cannulated with JR4 guide Prowater wire placed into distal vessel Mid RCA stented with 2.75 x 18 mm Xience drug-eluting stent Stent postdilated with 3.0 NC IC vasodilators administered for spasm residual stenosis, haziness just distal to stent Second IVANA (3.0 x 12 mm Xience) overlapped with distal aspect of initial stent Stent postdilated with stent balloon Post procedure HAWK 3 flow, stent well expanded with minimal residual stenosis, and no apparent edge complications. Arterial Closure: TR band Summary: 1. Successful PCI of proximal to mid LAD with single drug-eluting stent (3.0 x 33 mm Xience; postdilated with 3.5 NC). 2. Successful PCI of mid RCA with 2 overlapping drug-eluting stents (2.75 x 18, 3.0 x 12 mm Xience). Recommendations: To PCU for continued monitoring Continue dual-antiplatelet therapy for at least 1 year Consult cardiac Rehab Hemodynamics Rest Ao:: 78/52/64 Final Ao: 106/68/86 LV: 102/21 Recommendations Recommendations: Medical Therapy and/or Counseling and PCI without planned CABG Specimens Specimens: None Radiation Exposure (mGy) 2923 Contrast (mls) 110 Fluids (cc crystalloids) Fluids (cc crystalloids): 440 Drains Drains: none Anesthesia moderate [id number] Procedural Complication(s) None Disposition PCU I attest to the content of the Intraoperative Record and any orders documented therein. Any exceptions are noted below. [facility] Card Cath Procedure Codes Cardiac Catheterization Procedure 1: Cardiovascular Cath Procedures: 47615 Left Heart Cath (+/-LV) Therapeutic Services & Ancillary Proc Procedure 1: Cardiovascular Tx and Anc Procedures: 88618 IV Ultrasound (Coronary or Graft) Moderate Sedation Procedure 1: Sedation/Anesthesia: 97139 Mod Sedation by the same physician;Init15 Min Child Age 5 & Up Procedure 2: Sedation/Anesthesia: 51413 Mod Sedation by the same physician; Ea [id number] Minutes Stenting Procedure 1: Cardiovascular Stent Procedures: 20214 Perc transcatheter placement of in tracoronary stent(s), with ang Procedure 2: Cardiovascular Stent Procedures: 54374 Ea addl branch of a major coronary artery PG Care Time/CCT Total # of Minutes Spent Total Time Spent with Patient: Total time spent is greater than 50% in coordination of care (as documented) at patient's floor/unit and/or counseling patient:
--- NOTE | 2021-05-07 16:56 | Cardiology Progress Note ---
Date of Service May 07, 2021 Assessment & Plan (1) ST elevation AR (STEMI): pt s/p emergent PCI , IVANA of culprit OM2 stenosis. Returned to catheterization lab for staged PCI of non culprit LAD and RCA today. Continue ASA, Brilinta, metoprolol. (2) Dyslipidemia: Pt declines to take atorvastatin due to family history of intolerance. Agreeable to rosuvastatin. Will start with 20 mg dose to ensure tolerance and titrate. (3) Family history of peripheral vascular disease: Mother with h/o AAA, LE PVC, carotid disease. Pt very concerned. Will proceed with screening duplex of Abd aorta. Continue radial artery access recovery protocol. Admission and Anticipated Discharge Date Admission Date: May 06, 2021 Subjective Pt seen in general cardiology follow up. Tolerated PCI well. Physical Exam Physical Exam: Temp Pulse Resp BP Pulse Ox 36.4 C L 83 18 100/70 94 05/07/21 15:19 05/07/21 15:45 05/07/21 15:45 05/07/21 15:45 05/07/21 15:45 Constitutional: WD/WN, vitals as above Respiratory: normal respiratory effort, lungs clear to auscultation Cardiovascular: RRR, no murmur, no edema mild hematoma of R radial access site, radial band in place Gastrointestinal (Abdomen): normal bowel sounds, soft, nontender, no hepatosplenomegaly Neurologic: PERRL, EOMI, accommodation nl, no face palsy, no dysarthria Results & Data ([facility]) Vital Signs (Past 12 Hours) Vital Signs Temp Pulse Pulse Pulse Resp BP BP 05/07/21 15:45 83 18 100/70 05/07/21 15:19 36.4 C L 87 18 95/68 L 05/07/21 15:01 36.6 C 85 20 97/65 L 05/07/21 14:45 36.7 C 88 19 109/74 05/07/21 14:30 36.8 C 92 H 18 101/82 05/07/21 14:13 36.4 C L 76 19 101/70 05/07/21 13:52 37 C 87 16 110/77 05/07/21 13:41 72 16 108/81 05/07/21 13:26 76 16 114/80 05/07/21 08:00 68 05/07/21 07:52 36.9 C 84 16 92/57 L Pulse Ox 05/07/21 15:45 94 05/07/21 15:19 92 05/07/21 15:01 94 05/07/21 14:45 94 05/07/21 14:30 94 05/07/21 14:13 05/07/21 13:52 95 05/07/21 13:41 98 05/07/21 13:26 98 05/07/21 08:00 05/07/21 07:52 93 (1) ST elevation AR (STEMI) Involved coronary artery: unspecified coronary artery Qualified Code(s): I21.3 - ST elevation (STEMI) myocardial infarction of unspecified site
[2021-05-07] MEDS: ROSUVASTATIN CALCIUM 20 MG TAB PO SCH (18:15)
[2021-05-08 06:53] LABS: Hematocrit (blood only) 45.2 % (42-52); Hemoglobin 16.1 g/dL (14.0-18.0); Mean Corpuscular Hemoglobin 32.8 pg (25-34); Mean Corpuscular Hgb Conc 35.6 g/dL (32-36); Mean Corpuscular Volume 92.1 fL (80-100); Mean Platelet Volume 10.1 fL (7.4-10.4); Platelet Count 173 K/uL (130-400); RDW Coefficient of Variation 12.1 % (11.5-14.5); RDW Standard Deviation 40.8 fL (36.4-46.3); Red Blood Count 4.91 M/uL (4.7-6.1); White Blood Count 8.63 K/uL (4.8-10.8)
[2021-05-08 07:12] LABS: Albumin Level 3.3 gm/dl (3.4-5.0); BUN Creatinine Ratio 13.1 (10-20); Calcium 8.8 mg/dl (8.5-10.1); Creatinine Clr Calc Pharmacy 92.6 ml/min; Est GFR (African American) 97.5 ml/min; Est GFR (Non-African American) 84.1 ml/min; Potassium 3.8 mmol/L (3.5-5.1)
[2021-05-08 07:14] LABS: Globulin 3.3 gm/dl (2.5-4.0); Total Protein 6.6 gm/dl (6.4-8.2)
[2021-05-08] MEDS: METOPROLOL TARTRATE 25 MG TAB PO SCH (08:16)
[2021-05-08] MEDS: ASPIRIN 81 MG ECTAB PO SCH (08:17)
[2021-05-08] MEDS: TICAGRELOR 90 MG TAB PO SCH (08:17)
--- NOTE | 2021-05-08 08:27 | Ultrasound Report ---
US aorta duplex CLINICAL HISTORY: family history of AAA COMPARISON STUDY: No previous studies for comparison. TECHNIQUE: Sonography of the abdominal aorta was performed. FINDINGS: There is no aneurysmal dilatation of the abdominal aorta. The proximal abdominal aorta dylan ures 1.4 cm in caliber. The mid abdominal aorta measures 1.4 cm. The distal abdominal aorta also dylan ures 1.4 cm. The caliber of the proximal bilateral common iliac arteries is normal. IMPRESSION: Normal caliber abdominal aorta. No aortic aneurysm. ACT 112: Negative or not required by law. Electronically signed by: Maynor Bocanegra M.D. 05/08/2021 8:26 AM
[2021-05-08] MEDS: ROSUVASTATIN CALCIUM 20 MG TAB PO SCH (09:17)
--- NOTE | 2021-05-08 09:44 | Electrocardiogram Report ---
Test Reason : Blood Pressure : / mmHG Vent. Rate : 091 BPM Atrial Rate : 091 BPM P-R Int : 152 ms QRS Dur : 100 ms QT Int : 362 ms P-R-T Axes : 074 -56 057 degrees QTc Int : 445 ms Normal sinus rhythm Left anterior fascicular block Abnormal ECG When compared with ECG of 07-MAY-2021 05:44, Left anterior fascicular block is now Present Confirmed by Yayo Leung ([id number]) on 05/08/2021 9:43:56 AM Referred By: REFERRED SELF Confirmed By:Joaquin Leung
--- NOTE | 2021-05-08 09:52 | Cardiology Progress Note ---
Date of Service May 08, 2021 Assessment & Plan (1) ST elevation DE (STEMI): EKG this morning 05/08/2021 reveals sinus rhythm at 91 bpm with left anterior fascicular block pattern, the previously noted anterolateral ST elevation noted on initial presentation to the emergency room has resolved. Subtle Q waves in the leads III and aVF cannot be excluded. pt s/p emergent PCI , IVANA of culprit OM2 stenosis. Returned to catheterization lab for staged PCI of non culprit mid LAD (1 IVANA) and mid RCA (2 overlapping Leif) today. Continue ASA, Brilinta, metoprolol. Change to metoprolol succinate 50 mg at discharge. Will reassess adding ACEI / ARB as outpatient, given relatively low BP (103/67), no h/o DM, CKD, or CHF (normal LVEF this admission). Stable for discharge. Follow up with Dr Chin in 2-3 weeks-appointment requested. I called [facility], out of pocket cost for Brilinta 90 mg BID =$30/month Cardiac rehab referral placed. (2) Dyslipidemia: LDL as outpatient in 05/2020 was 245 mg/dl. LDL this admission 198 mg/dl. Pt declines to take atorvastatin due to family history of intolerance. Agreeable to rosuvastatin. Will start with 20 mg dose to ensure tolerance and titrate. (3) Family history of peripheral vascular disease: Mother with h/o AAA, LE PVC, carotid disease. Duplex this admission, no AAA. Admission and Anticipated Discharge Date Admission Date: May 06, 2021 Subjective Patient seen in cardiology follow-up of his multivessel coronary heart disease having presented with inferolateral ST segment elevation myocardial infarction this admission. He notes feeling well. Denies any chest discomfort. His right wrist was a little bit swollen after the procedure yesterday, but this is improved, with minimal residual ecchymosis around his right radial artery access site. Telemetry reveals sinus rhythm at 70 bpm at rest, 99 bpm with walking in his room. Review of Systems Review of Systems: All systems reviewed & are unremarkable except as noted in HPI & below Physical Exam Physical Exam: Temp Pulse Resp BP Pulse Ox 37.4 C 73 18 103/67 92 05/08/21 07:55 05/08/21 08:00 05/08/21 07:55 05/08/21 07:55 05/08/21 07:55 Constitutional: WD/WN, vitals as above Respiratory: normal respiratory effort, lungs clear to auscultation Cardiovascular: RRR, no murmur, no edema Vessels: no JVD Right radial access site clean dry and intact, mild ecchymosis, no hematoma, no stigmata of peripheral embolic phenomenon. Gastrointestinal (Abdomen): normal bowel sounds, soft, nontender, no hepatosplenomegaly Neurologic: PERRL, EOMI, accommodation nl, no face palsy, no dysarthria Results & Data ([facility]) Vital Signs (Past 12 Hours) Vital Signs Temp Pulse Pulse Pulse Resp BP BP 05/08/21 08:00 73 05/08/21 07:55 37.4 C 92 H 18 103/67 05/08/21 03:45 36.8 C 95 H 19 107/69 05/07/21 23:56 37.5 C 82 18 108/75 05/07/21 22:20 82 Pulse Ox 05/08/21 08:00 05/08/21 07:55 92 05/08/21 03:45 94 05/07/21 23:56 92 05/07/21 22:20 Laboratory Results Cardiac Enzymes 05/08/21 Range/Units 06:41 AST 77 H (15-37) U/L CBC 05/08/21 Range/Units 06:41 WBC 8.63 (4.8-10.8) K/uL RBC 4.91 (4.7-6.1) M/uL Hgb 16.1 (14.0-18.0) g/dL Hct 45.2 (42-52) % Plt Count 173 (130-400) K/uL Comprehensive Metabolic Panel 05/08/21 Range/Units 06:41 Sodium 136 (136-145) mmol/L Potassium 3.8 (3.5-5.1) mmol/L Chloride 107 (98-107) mmol/L Carbon Dioxide 21 (21-32) mmol/L BUN 14 (7-18) mg/dl Creatinine 1.05 (0.6-1.4) mg/dl Glucose 100 H (70-99) mg/dl Calcium 8.8 (8.5-10.1) mg/dl AST 77 H (15-37) U/L ALT 55 (12-78) U/L Alkaline Phosphatase 75 (45-117) U/L Total Protein 6.6 (6.4-8.2) gm/dl Albumin 3.3 L (3.4-5.0) gm/dl Intake and Output 05/07/21 05/08/21 05/08/21 22:59 06:59 14:59 Intake Total 1954 740 / 1954 Output Total Balance 1953 739 / 1953 Intake: IV 0 1214 Sodium Chloride 0.9% 1000ML 1, 0 1214 000 ml @ 100 mls/hr IV .Q10H RITA Rx#:[id number] Oral 740 / 740 Output: Urine Other: # Unmeasured Voids 1 Weight 95.9 kg Weight Measurement Method Standing Scale (1) ST elevation DE (STEMI) Involved coronary artery: unspecified coronary artery Qualified Code(s): I21.3 - ST elevation (STEMI) myocardial infarction of unspecified site
--- NOTE | 2021-05-08 10:30 | Hospitalist Progress Note ---
Date of Service May 08, 2021 Assessment & Plan (1) Chest pain: STEMI S/P PCI: Successful PCI of proximal to mid LAD with single drug-eluting stent. Successful PCI of mid RCA with 2 overlapping drug-eluting stents. EKG shows: Sinus tachycardia, left anterior fascicular block, inferior infarct Elevated cardiac enzymes CXR:No acute cardiopulmonary findings. ECHO: Mild concentric LVH. No regional wall motion abnormality. Left ventricle systolic function is normal. EF 55 to 60%. Diastolic dysfunction, grade 2. Appreciate cardiology input Continue aspirin, Brilinta, statin, metoprolol Needs follow-up with cardiology upon discharge Dyslipidemia Patient declines to take atorvastatin given family history of intolerance Continue rosuvastatin 20 mg daily DVT Px: SCDs CODE STATUS Full code Admission and Anticipated Discharge Date Admission Date: May 06, 2021 Subjective Patient seen and examined at bedside Chest pain resolved Discussed with cardiology today Eager to get discharged Denies dyspnea, dizziness, nausea, abdominal pain Offers no other complaints Review of Systems Review of Systems: All systems reviewed & are unremarkable except as noted in HPI & below Physical Exam Physical Exam: Physical Exam: Vitals signs as noted above General Appearance:Moderately built and nourished, no apparent distress Head: normocephalic, Atraumatic Eyes: normal inspection, EOMI Neck: supple, Trachea midline Respiratory/Chest: Normal breath sounds, CTA, No accessory muscle use Cardiovascular: S1, S2, No murmur Abdomen/GI:Soft, Non tender, Bowel sounds present Extremities/Musculoskeletal:normal inspection, no edema Neurologic/Psych:AAOX3, grossly no focal neurological deficits Skin: normal color, warm Results & Data Results & Data ([facility]) Vital Signs (Past 12 Hours) Vital Signs Temp Pulse Pulse Pulse Resp BP BP 05/08/21 08:00 73 05/08/21 07:55 37.4 C 92 H 18 103/67 05/08/21 03:45 36.8 C 95 H 19 107/69 05/07/21 23:56 37.5 C 82 18 108/75 Pulse Ox 05/08/21 08:00 05/08/21 07:55 92 05/08/21 03:45 94 05/07/21 23:56 92 Laboratory Results Short CBC 05/08/21 Range/Units 06:41 WBC 8.63 (4.8-10.8) K/uL Hgb 16.1 (14.0-18.0) g/dL Hct 45.2 (42-52) % Plt Count 173 (130-400) K/uL BMP 05/08/21 06:41 Sodium 136 Potassium 3.8 Chloride 107 Carbon Dioxide 21 BUN 14 Creatinine 1.05 Glucose 100 H Calcium 8.8 Liver Function 05/08/21 Range/Units 06:41 Total Bilirubin 1.0 (0.2-1) mg/dl AST 77 H (15-37) U/L ALT 55 (12-78) U/L Alkaline Phosphatase 75 (45-117) U/L Albumin 3.3 L (3.4-5.0) gm/dl (1) Chest pain Chest pain type: unspecified Qualified Code(s): R07.9 - Chest pain, unspecified
--- NOTE | 2021-05-08 15:43 | Discharge Summary ---
Date of Service May 08, 2021 Admission HPI Per Admitting Provider CHIEF COMPLAINT: Chest pain, ST elevated MO. HISTORY OF PRESENT ILLNESS: A 45-year-old male with past medical history significant for hyperlipidemia, obesity, currently not taking any medications, presents with chest pain. The patient around 10 p.m. was going to bed. He noticed chest discomfort of 2/10 severity but more of feeling tight in the chest when he was laying down, could not breathe and the pain started radiating to the left arm about 3/10 severity. At that time he decided to come to the ER. On the way he vomited. In the ER, he was found to have EKG showed ST elevation in inferolateral leads and heart rate was called. The patient was taken emergently to Cardiac Cath, cardiac cath done. Cardiac catheterization showed 70% focal mid LAD lesion, 60-70% OM1 lesion and 70% mid right coronary artery lesion. The culprit lesion was identified to be the second obtuse marginal artery with 100% occlusion. The patient is status post drug eluting stent to the second obtuse marginal artery. Currently patient is asymptomatic, resting comfortably in the ICU. Hemodynamically stable. The patient did not have any sweating , nausea, headache or dizziness during the episode. No cough, no fever, no chills, no earache, no runny nose, no sore throat. Denies any abdominal pain. Normal bowel and bladder movements. Otherwise before this episode he was ambulating fine without any symptoms. The patient also has history of very high cholesterol and family doctor prescribed him Lipitor but he never took it. Admission Exam Per Admitting Provider PHYSICAL EXAMINATION: GENERAL: The patient is obese, not in acute distress. VITAL SIGNS: Temperature 36.6, pulse 97, respiratory rate 20, blood pressure 120/85, oxygen 95% on room air. HEENT: Head atraumatic. NECK: No JVD. No neck masses seen. CARDIOVASCULAR: S1, S2 heard. Regular rate and rhythm. No murmur, no gallop. RESPIRATORY: Normal AP diameter. No accessory muscle use. No wheeze, no crackles. ABDOMEN: Soft. Bowel sounds heard. Nontender, no distention. CENTRAL NERVOUS SYSTEM: Cranial nerves II-XII grossly intact. Nonfocal. EXTREMITIES: Right groin catheter site has no pitting or erythema seen. Principal Diagnosis ST segment elevation myocardial infarction Dyslipidemia Discharge Data Allergies Allergy/AdvReac Type Severity Reaction Status Date / Time No Known Allergies Allergy Verified 05/06/21 07:34 Consultations 05/05/21 23:55 ED Decision to Admit Stat 05/06/21 00:52 Consult Internal Medicine Routine 05/06/21 03:07 Consult Manager Forms Routine 05/06/21 05:00 Consult Cardiology Routine 05/07/21 13:56 Consult Cardiac Rehabilitation Routine 05/08/21 09:53 Consult Cardiac Rehabilitation Stat Procedures Performed Operation Date: 05/05/21 23:45 Actual Procedures s Cineradiography w/Routine Exam - Casimiro Coronado MD s Placement Art Occlusive Device - Casimiro Coronado MD s Cath, Coronaries ONLY (no LV) - Casimiro Coronado MD p Aspiration/PCI w/IVANA for Stemi - Irving Angelo MD Operation Date: 05/07/21 12:00 Actual Procedures p Cath, Left w/Cors Vent Grafts - Irving Angelo MD s Drug Eluting Stent SGl Vessel - Irving Angelo MD s Drug Eluting Stent each ADDTL Vessel - Irving Angelo MD s IVUS Coronary Single Vessel - Irving Angelo MD s Cineradiography w/Routine Exam - Irving Angelo MD Ordered Studies 05/05/21 23:44 CL Cath Imgs for PACS use only Stat 05/07/21 06:38 CL Cath Imgs for PACS use only Routine 05/07/21 13:34 CL IVUS Coronary Single Vessel Routine 05/08/21 US aorta duplex Routine Hospital Course (1) Chest pain: STEMI S/P PCI: Successful PCI of proximal to mid LAD with single drug-eluting stent. Successful PCI of mid RCA with 2 overlapping drug-eluting stents. EKG shows: Sinus tachycardia, left anterior fascicular block, inferior infarct Elevated cardiac enzymes CXR:No acute cardiopulmonary findings. ECHO: Mild concentric LVH. No regional wall motion abnormality. Left ventricle systolic function is normal. EF 55 to 60%. Diastolic dysfunction, grade 2. Appreciate cardiology input Continue aspirin, Brilinta, statin, metoprolol Needs follow-up with cardiology upon discharge Dyslipidemia Patient declines to take atorvastatin given family history of intolerance Continue rosuvastatin 20 mg daily DVT Px: SCDs CODE STATUS Full code Total Time Total Time Spent Total Time Spent (In Minutes): 44 minutes Discharge Plan Discharge Items Patient Disposition: Home - Self-Care Reason For Visit: CHEST PAIN Discharge Diagnosis: Myocardial infarction Dyslipidemia Activity: Per Instructions section Exercise/Sports: Wait until after follow-up appointment Non-emergency contact: Primary Care Provider and Artificial Teeth Inspector Call non-emergency contact if: you have any medication questions, your symptoms worsen, your pain is not controlled, your pain is concerning for you and you have a fever Follow-up/Referrals: Narciso Chin DO [Artificial Teeth Inspector] - 05/30/21 9:00 am (Please follow up with Dr. Chin on 05/30/21 at 9:00 am. Please arrive to the office at 8:45 am for your appointment. If you are unable to keep this appointment, please call the office to resc hedule at [phone].) Chon Donovan MD [Primary Care Provider] - (Date & Time 05/14/2021 3:20 PM Provider Chon Donovan MD Department Family Practice [facility] ) Diet: Heart Healthy Addtl Attending Provider Instructions: Follow-up with your primary care physician Dr. Donovan in 1 week Follow-up with your aircraft refueler Dr. Chin in 2-3 weeks as recommended Seek immediate medical attention if your symptoms reoccur or worsen Please take all medications as instructed on discharge list below. Please call if you have any questions or problems. You can reach a [facility] hospitalist on duty at [facility] 24 hours a day by calling [phone] Home Care: * Take your medications exactly as directed. Don't skip doses. * Remember that recovery after a heart attack takes time. Plan to rest for at lease 4-8 weeks while you recover. Then return to normal activity when your doctor says it's okay. * Ask your doctor about joining a heart rehabilitation program. * Tell your doctor if you are feeling depressed. Feelings of sadness are common after a heart attack, but it is important that you speak to someone if you are feeling overwhelmed by these feelings. * If you are having chest pain, call 911 for an ambulance. Do NOT drive y ourself to the hospital. * Ask your family members to learn CPR. * Learn to take your own blood pressure and pulse. Keep a record of your results. Ask your doctor when you should seek emergency medical attention. He or she will tell you which blood pressure reading is dangerous. Lifestyle Changes: * Maintain a healthy weight. Get help to lose any extra pounds. * Cut back on salt. * Limit canned, dried, packaged, and fast foods. * Don't add salt to your food. * Season foods with herbs instead of salt when you cook. * Break the smoking habit. Enroll in a stop-smoking program to improve your chances of success. * Limit fatty foods. * Ask your doctor about having your lipid levels checked regularly. * Build up your activity according to your doctor's recommendation. * Ask your doctor when it's okay to resume sexual activity. * Tell your doctor about any erectile dysfunction (ED) medication you are taking. Some ED medications are not safe if you take certain heart medicat ions. * Try to manage stress. Follow Up: It is important for you to keep your follow up appointments with your medical provider. ACTIVITY RECOMMENDATIONS: Excess manipulation of the wrist should be avoided for the next 24-48 hours. * No lifting over 2 pounds (approximately a 1/2 gallon of milk) with the utilized arm for 24 hours. * No strenuous activity such as bowling or tennis for 3 days. * Keep the site of the procedure covered with a bandage for 24 hours. *You may shower the day after the procedure. Do not take a tub bath or submerge the puncture site in water for the next 3 days. *Do not operate any motorized equipment for 3 days. SPECIAL CARE INSTRUCTIONS: The site may be slightly bruised and sore following your procedure. Should any of the following occur, contact the Dr. who performed your procedure. 1. Redness/inflammation, swelling, chills, or fever, or colored drainage at procedure site within 3-7 days after your procedure. 2. Coldness, discoloration, ongoing numbness, severe pain, or swelling. Expect mild tingling of hand and tenderness at the puncture site for up to three days. If this persists beyond three days, or other symptoms develop, notify the Dr. who performed your procedure. BLEEDING: If the procedure site on your wrist begins to bleed, do not panic 1. Place 1 or 2 fingers firmly just slightly above the insertion site to stop the bleeding. You may be able to feel your pulse as you hold pressure. 2. Lift your finger after 5 minutes to see if the bleeding has stopped. 3. Once the bleeding has stopped, gently wipe the wrist area clean with a bandage. * If the bleeding from your wrist does not stop after 10 minutes, or if there is a large amount of bleeding or spurting, call 911 (do not drive yourself to the hospital). SKIN IRRITATION: * You may experience some redness and/or swelling in the area where radiation was administered. If any skin irritation occurs, please contact your family physician. FOLLOW UP VISIT: Keep any scheduled doctor appointments. Addtl Technical Inspector Provider Instructions: Cardiac medications: Aspirin 81 mg daily (lifelong treatment) Brilinta 90 mg twice daily (for 1 year) Metoprolol succinate 50 mg by mouth daily in the morning Rosuvastatin 20 mg by mouth daily Cardiac rehabilitation referral placed. Follow-up with cardiology in 2 to 3 weeks. Pending Studies at Discharge: No Stand-Alone Forms: SeeMe, Smoking Cessation Medications and DC Order Prescriptions: New Brilinta 90 mg Tablet 90 mg PO BID Qty: 60 RF: 1 metoprolol succinate 50 mg Tablet Extended Release 24 Hr 50 mg PO QAM Qty: 30 RF: 1 aspirin 81 mg Tablet,Delayed Release (Dr/Ec) 81 mg PO QAM Qty: 30 RF: 1 rosuvastatin [Crestor] 20 mg Tablet 20 mg PO QAM Qty: 30 RF: 1 Continued acetaminophen [Tylenol Extra Strength] 500 mg Tablet 1,000 mg PO DIRECTED PRN (Reason: Pain) RF: 0 Discharge Orders: Discharge Order (Routine); Ordered 05/08/21 Ordered By: Abdoul Armendariz Admission Data Admit Date/Time: 05/06/21 02:57 Attending Provider: Abdoul Armendariz Admit Provider: Rich Valenzuela Primary Care Provider: Chon Donovan Other Providers: Rich Valenzuela ; Cisco Paulino ; Vicky Perez ; Andrea Ornelas ; Levy Michaels ; Xander Carlos ; Blair Grover ; Macho Terrell ; Shahrzad Sun ; Batool Anthony ; Jose M Kilgore ; Lisette Lim ; Perla Renteria ; Hiro Haque ; Kj Valadez ; [place] ; Janes Tovar ; Chetan Silverman ; Irving Marte ; Andrea Renae ; Beny Hassan ; Tierney Poe ; Kb Castro ; Jez Bergman ; Lennox Gong ; Zachary Forbes ; Narciso Chin ; Tray Iqbal ; Xander Levy ; Keven Manning ; Leopoldo Gates ; Racquel Cosme ; Kathy Ace ; Batool Jarquin ; Aki Mandel Other Interventions: Discharge Summary Assessment (RN) Last Done: 05/08/21 13:03
[2021-05-09] MEDS ORDERED: METOPROLOL SUCC 50MG EXT REL TAB PO SCH (09:00)
== END 2021-05-08 13:48 | disposition home or self-care (01) | DRG 246 ==
LOC: ED 23:05 → CC 05-06 00:10 → MERGE 05-06 01:15 → 1E 05-06 01:15 → SUATTDRO 05-06 02:57 → 2E 05-06 17:04
PROC: CLB.CCO (2021-05-05 23:45)